=== PATIENT | female | born 1965 | race Caucasian/White ===

== ENCOUNTER 2022-12-10 08:00 | Outpatient (CLI) | payer OTHER ==
[2022-12-10] MEDS ORDERED: Magnevist 469MG/ML 20 ML VIAL ONE (11:20)
== END 2022-12-10 08:01 | disposition home or self-care (01) ==
LOC: BICMRI 08:00
PROVIDERS: ATTEND Orthopaedic Surgery Hand Surgery
DX: C85.99 Non-Hodgkin lymphoma, unspecified, extranodal and solid organ sites (principal); D16.9 Benign neoplasm of bone and articular cartilage, unspecified
CPT/HCPCS: A9579

== ENCOUNTER 2023-03-07 13:13 | Outpatient (CLI) | payer OTHER | END 2023-03-07 13:14 | disposition home or self-care (01) | LOC: BICMAMMO 13:13 | PROVIDERS: ATTEND Family Medicine | DX: Z12.31 Encounter for screening mammogram for malignant neoplasm of breast (principal) | CPT/HCPCS: 77063; 77067 ==

== ENCOUNTER 2023-10-22 09:16 | Outpatient (CLI) | payer OTHER | END 2023-10-22 09:17 | disposition home or self-care (01) | LOC: BICULT 09:16 | PROVIDERS: ATTEND Student in an Organized Health Care Education/Training Program | DX: K21.9 Gastro-esophageal reflux disease without esophagitis (principal) | CPT/HCPCS: 76705 ==